=== PATIENT | male | born 1960 | race Caucasian/White ===

== ENCOUNTER → 2020-01-28 09:44 | Outpatient (CLI) | payer SELFPAY ==
--- NOTE | 2020-01-28 09:52 | RAD_ITS ---
STUDY: X-RAY - LEFT KNEE REASON FOR EXAM: Male, 60 years old. Left knee pain, injury 3 days ago TECHNIQUE: 4 view(s) of the knee. COMPARISON: None. FINDINGS: Normal visualized distal femur. Normal visualized proximal tibia and fibula. Normal proximal tibiofibular articulation. Normal medial femorotibial compartment. Normal lateral femorotibial compartment. Normal patellofemoral articulation. Tiny joint effusion. RAD/Knee 4 or More Views IMPRESSION: Tiny joint effusion. Electronically Signed: Scottie Ramey, at 15:05 EDT , Service support ,
== END ==
PROVIDERS: PCP Family Medicine; Referring Provider Family Medicine; Visit Provider Family Medicine
DX: S83.422A Sprain of lateral collateral ligament of left knee, initial encounter (principal)
CPT/HCPCS: 73564

== ENCOUNTER → 2020-08-18 15:22 | Outpatient (CLI) | payer SELFPAY ==
--- NOTE | 2020-08-18 15:32 | RAD_ITS ---
STUDY: X-RAY - LEFT ANKLE REASON FOR EXAM: Male, 60 years old. Left ankle pain x 3 months TECHNIQUE: 3 view(s) of the ankle. COMPARISON: None. FINDINGS: Normal visualized distal tibia and fibula. Normal medial and lateral malleoli. Normal tibiotalar articulation and ankle mortise. Talar neck beak. This is a normal variant. The visualized subtalar, talonavicular, calcaneocuboid and tarsal articulations are normal. The soft tissue structures are unremarkable. RAD/Ankle min 3 Views IMPRESSION: Normal x-ray examination of the ankle. Electronically Signed: Scottie Ramey, at 15:47 EST , Service support ,
== END ==
PROVIDERS: PCP Family Medicine
DX: M25.572 Pain in left ankle and joints of left foot (principal)
CPT/HCPCS: 73610

== ENCOUNTER → 2020-10-28 14:18 | Outpatient (CLI) | payer SELFPAY ==
--- NOTE | 2020-10-28 14:24 | RAD_ITS ---
STUDY: X-RAY - PELVIS AND RIGHT HIP REASON FOR EXAM: Male, 60 years old. chronic right hip pain TECHNIQUE: 3 views of the pelvis and hip. COMPARISON: None. FINDINGS: There is a non-specific bowel gas pattern. Normal visualized soft tissue structures. Normal bilateral iliac wings, sacroiliac joints and visualized sacrum. Normal bilateral superior and inferior pubic rami. Normal pubic symphysis. Normal bilateral ischial tuberosities. There are osteoarthritic changes of the femoral head with marginal osteophyte formation. There is osteoarthritic spur formation of the acetabular rim. is severe articular joint space narrowing of the hip. RAD/HIP, UNI W/ Pelvis 2-3 Views IMPRESSION: Severe degenerative change of the right hip Electronically Signed: Rickey Beltran DO at 5:04 EST Tel , Service support ,
== END ==
PROVIDERS: PCP Family Medicine
DX: M25.551 Pain in right hip (principal); G89.29 Other chronic pain
CPT/HCPCS: 73502

== ENCOUNTER → 2021-04-19 07:42 | Outpatient (CLI) | payer SELFPAY ==
[2021-03-29 07:58] VITALS: BMI 31.6
--- NOTE | 2021-04-19 07:49 | CT_ITS ---
STUDY: CT SCAN HIP RIGHT REASON FOR EXAM: Male, [address] templating for right GENA RADIATION DOSAGE (If Supplied By Facility): CTDIvol = ( 13.87 ) mGy, DLP = ( 959.01 ) mGycm. Individualized dose optimization techniques were used for this CT.? TECHNIQUE: Multiple axial tomographic images of both hip joints were obtained without intravenous contrast administration. Sagittal and coronal reconstruction was obtained as well. COMPARISON: Comparison is made with prior radiograph dated 10/28/2020. FINDINGS: There is a marked degree of joint space narrowing of the right hip joint. Subchondral geodes are seen in the femoral head. Small cystic changes are seen in the acetabulum. There is evidence of bony spur formation along the medial and lateral aspects of the right femoral head. There is also evidence of a dominant spur formation along the medial superior aspect of the right femoral head abutting the articular surface. Degenerative changes of the sacroiliac joints bilaterally. 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 Degenerative spurring of the femoral head as described. Electronically Signed: Scottie Ramey MD at 9:06 EDT , Service support ,
== END ==
PROVIDERS: PCP Family Medicine; Referring Provider Orthopaedic Surgery; Visit Provider Orthopaedic Surgery
DX: M16.11 Unilateral primary osteoarthritis, right hip (principal)
CPT/HCPCS: 73700

== ENCOUNTER → 2021-05-04 12:40 | Outpatient (CLI) | payer SELFPAY ==
[2021-03-29 07:58] VITALS: BMI 31.6
--- NOTE | 2021-05-04 16:03 | EKG12_ITS ---
Test Reason : PREOP Blood Pressure : / mmHG Vent. Rate : 068 BPM Atrial Rate : 068 BPM P-R Int : 176 ms QRS Dur : 086 ms QT Int : 388 ms P-R-T Axes : 006 -43 004 degrees QTc Int : 412 ms Normal sinus rhythm Left axis deviation Abnormal ECG Confirmed by ELIA EVANS, MEE ([id number]), online content editor PEDRO GODWIN ([id number]) on 05/05/2021 1:16:48 PM Referred By: Micheal Becerra Confirmed By:MEE RODRIGEZ MD
[2021-05-04 17:16] LABS: Absolute Lymphocyte Count 2.67 X10^3/uL (0.83-4.51); Absolute Neutrophil Count 3.5 X10^3/uL (2.0-7.7); Basophil# 0.04 X10^3/uL; Basophil% 0.6 % (0-1); Eosinophil# 0.13 X10^3/uL; Eosinophils% 1.9 % (0-5); Hematocrit 46.2 % (40-54); Hemoglobin 15.1 g/dL (13.0-16.5); Lymphocyte # 2.67 X10^3/ul (0.83-4.51); Lymphocyte % 38.6 % (19-41); Mean Corp Hgb Conc 32.7 g/dL (32-36); Mean Corpuscular Hgb 28.8 pg (27.0-32.0); Mean Platelet Vol. 9.5 fl (6.2-12.0); Monocyte# 0.59 X10^3/uL; Monocyte% 8.5 % (0-10); NRBC Flagged by Analyzer 0 % (0-5); Neutrophil # 3.46 X10^3/uL (2.7-7.7); Neutrophil % 50.1 % (47-70); Platelet Count 242 K/mm3 (150-450); RBC Distribution Width CV 13.4 % (11.6-14.6); RBC Distribution Width SD 43.4 fl (35.1-43.9); Red Blood Count 5.25 M/mm3 (4.6-6.2); White Blood Count 6.9 K/mm3 (4.4-11.0)
[2021-05-04 17:22] LABS: Partial Thromboplast Time 45.2 Seconds (24.1-36.2)
[2021-05-04 17:33] LABS: Anion Gap 6 (5-15); BUN 24 mg/dL (7-18); BUN/Creat Ratio 17.3 RATIO (10-20); Calcium,Total 8.9 mg/dL (8.5-10.1); Chloride 104 mmol/L (98-107); Creatinine, Serum 1.39 mg/dL (0.70-1.30); EST Glomerular Filtration Rate 55 mL/min (>60); Est Glom Filt Rate - Afr Amer 67 mL/min (>60); Glucose 99 mg/dL (74-106); Potassium 4.2 mmol/L (3.5-5.1); Sodium Level 139 mmol/L (136-145)
[2021-05-04 17:54] LABS: Magnesium 2.4 mg/dL (1.6-2.6)
[2021-05-06 16:26] LABS: Fructosamine 205 umol/L (0-285)
== END ==
PROVIDERS: Anesthesiology; PCP Family Medicine; Referring Provider Orthopaedic Surgery; Visit Provider Orthopaedic Surgery
DX: Z01.818 Encounter for other preprocedural examination (principal); Z53.8 Procedure and treatment not carried out for other reasons; Z01.812 Encounter for preprocedural laboratory examination; R94.31 Abnormal electrocardiogram [ECG] [EKG]
CPT/HCPCS: 36415; 80048; 82985; 83735; 85025; 85610; 85730; 86850; 86900; 86901; 87081; 93005

== ENCOUNTER 2021-06-22 08:10 | Day surgery (SDC) | payer SELFPAY ==
[2021-06-22] VITALS (7 sets, daily range): BP systolic 95–132; BP diastolic 64–94; PULSE 51–84; RESP 16–18; TEMP 36.1–36.6; O2SAT 93–100; BMI 31.4
[2021-06-22] MEDS: Lactated Ringers 1,000 ML 125 ML IV ×2 (07:00→11:30)
[2021-06-22 08:50] LABS: Bedside Glucose 99 mg/dL (70-110)
[2021-06-22] MEDS: Gabapentin 600 MG Tablet PO (09:02)
[2021-06-22] MEDS: Acetaminophen 500 MG Tablet 1000 MG PO ×2 (09:02→14:00)
[2021-06-22] MEDS: Scopolamine 1mg/72hr Patch 1 PATCH TD (09:03)
[2021-06-22] MEDS: Lactated Ringers 1,000 ML 100 ML IV (09:04)
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
--- NOTE | 2021-06-22 10:45 | FEM_PTH ---
PATIENT: ROSI BOWMAN LOC: [facility] U#:[id number] AGE/SX: 61/M ROOM: RE06/22/[address]: Dr. Micheal Becerra DO : 1960 BED: DIS: 06/22/2021 SPEC #: [id number] RECD: 06/22/21 14:57 STATUS: ZULEMA REDany #: [id number] SHELLI: 06/22/21 10:[address]: Micheal Becerra DEPT: SURGICAL PATHOLOGY RECD BY: Sophie Arias ENTERED: 06/23/21 11:42 SP TYPE: FEM HEAD OTHR DR: Dr. Ervin Jason MD Tissues: Femoral region, NOS Procedures: Decalcification bone/plaque Surgery Specimen Level IV HEADER OPERATION: Total hip replacement robotic arm assist PRE-OP DIAGNOSIS: Primary osteoarthritis right hip TISSUE SUBMITTED: Right hip bone and soft tissue MICROSCOPIC DIAGNOSIS Bone and tissue of right hip, total hip resection: Severe degenerative joint disease. Mild synovial hyperplasia. AM:janet 06/28/2021 MICROSCOPIC DESCRIPTION Slides are reviewed. GROSS DESCRIPTION Received is one container labeled with the patient's name and designated bone and soft tissue hip, right. The specimen consists of a cramer femoral head with portion of femoral neck. The femoral head measures 4.5 x 5 x 4 cm and the femoral neck measures 2 cm in length. The articular surface displays prominent osteophyte formation, eburnation and bone erosion. Also present in the specimen container are multiple irregular fragments of bone reamings and pink-yellow soft tissue measuring in aggregate 9 x 9 x 3 cm. Shop Tailor Apprentice sections are submitted in two cassettes as follows: 1 - soft tissue, 2 - bone after decalcification. / SJ:janet 06/23/21 TC:5 [facility]: [id number]
[2021-06-22] MEDS: Cefazolin 2 GM in 0.9% Normal Saline 100 ML IV (10:50)
[2021-06-22] MEDS: dexAMETHasone 10 MG/ML Vial IV (10:55)
--- NOTE | 2021-06-22 13:01 | PCM.OPRPT ---
Report of Operation Date of Procedure: 06/22/21 Description of Surgical Findings:: Preoperative diagnosis: Right hip DJD Postoperative diagnosis: Same Procedure: CT-guided Makoplasty assisted right total hip arthroplasty Implants: Hallwood Accolade II stem size 6, 132 degree neck angle +5 neck length 56 mm Trident II acetabular shell with [30] mm cancellous screw [36]mm [ceramic] head Anesthesia: [Spinal] EBL: [175] cc Complications: None Condition: Stable to PACU Indication for procedure: This is a 61-year-old male who has had long-standing arthrosis of the hip who has failed conservative treatment and wished to undergo total hip arthroplasty. We did discuss operative versus nonoperative intervention including risks of bleeding, infection , nerve artery tissue damage, need for further surgery, fracture, leg length discrepancy dislocation blood clot and need for postoperative physical therapy and postoperative expectations. An informed consent was signed. Procedure: Patient was met in the preoperative holding area once again the operative extremity was identified by both patient and physician and was marked. Patient was met by anesthesia . Anesthesia was started. patient was then positioned in the lateral decubitus position on a well-padded pegboard with an axillary roll. All bony prominences were checked and padded. The patient was prepped and draped in the usual sterile fashion. A timeout was called to ensure the proper patient procedure and extremity were being contemplated. Anatomic landmarks were palpated and marked for a standard posterior lateral approach. Prior to this the ASIS was palpated and 3 fingerbreadths proximal to this 3 pins were placed at a 45 degree angle into the iliac crest with good purchase, stab incisions were made with a 15 blade into the skin prior to placement. The Makoplasty array was then secured. A 10 blade scalpel was used to make a posterior incision through the skin and subcutaneous tissue. retractors were used and electrocautery was used to maintain meticulous hemostasis and dissect full-thickness flaps until the gluteal fascia was reached. The gluteal fascia was incised in line with the gluteal fibers. The bursal tissue was then freed from the underside and a Charnley retractor was placed. The femoral trochanteric checkpoint was placed and leg length was assessed using the trochanteric checkpoint and an EKG lead that was placed on the knee prior to prepping the leg .the fat pad was then elevated off of the external rotators with electrocautery and the external rotators were dissected off of the greater trochanter including the piriformis and were tagged with #1 Ethibond for later repair. The joint capsule opened with posterior trapdoor technique. The hip was surgically dislocated. The measurement on the preoperative CT from the top of the lesser trochanter to the femoral neck cut was marked Hohmann was placed around the lesser trochanter. A neck cutting guide was used to herrera the neck with a Bovie and an oscillating saw was used complete the femoral neck cut. The femoral head was then removed and sized. We then turned our attention to the acetabulum. A Bovie was used to make a perforation in the anterior joint capsule and a Ribera retractor was placed this was repeated in the 6 o'clock position and a wide anna was placed there. With a long handled knife the labral and pulvinar tissue were removed. We then registered the acetabulum with the pointing array and confirmed our landmarks. Once the socket was thoroughly prepared and labral tissue and pulvinar was removed we single reamed with the robotic arm. We then used the robotic arm to position the acetabular implant and impacted it into place under robotic guidance. [We then proceeded to place a posterior superior screw by drilling first measuring and inserting the screw]. We then inserted a trial liner. And turned our attention back to the femur at this point a femoral elevator was used. As well as a pointed wide Hohmann around the lesser trochanter and a Hohmann to help retract the gluteus medius. A box chisel was used to remove excess lateral neck followed by a canal finder and a lateralizing reamer. This was followed by sequential broaches. Attention was made of the version within the canal based on preoperative templating. Once the final broach was seated we then trialed reduced the hip it was determined that a 132 degree neck angle with a +5 neck length was the appropriate size. We then checked stability with shuck testing as well as flexion and internal rotation. then proceeded with hip extension and checked leg lengths at the knees and heels as well as with the trochanteric checkpoint and knee EKG lead. At this point trials were removed. A liner was inserted to the cup. The femoral stem was inserted. We re-trialed and then proceeded to impact the femoral head onto the Michael taper. We then surgically reduce the hip check stability again and leg lengths and were satisfied. Betadine rinse was allowed to sit for 5 minutes while everyone changed their gloves. Thorough irrigation was performed. Followed by closure of the external rotators with #2 FiberWire followed by closure of gluteal fascia with #1 Ethibond. 0 Vicryl fat stitches and 2-0 Vicryl subcutaneous stitches and bruna in the skin. A pulls were placed in the pin sites over the iliac crest with Xeroform 4 x 4 and OpSite. dressing was applied to incisional area with Mepilex Ag and an abduction pillow was placed. Patient tolerated the procedure well there was no intraoperative complications all counts were correct and the patient was brought back to the PACU in stable condition
--- NOTE | 2021-06-22 13:07 | DCINST_ITS ---
Discharge Instructions Diet Discharge Diet: - (High sugar diet increases risk of infection) Activity Weight Bearing Status: Weight bearing as tolerated Dressing / Incision Call your doctor if you observe: Shortness of breath and Chest pain Remove Dressing in: 3 days Additional Dressing/Incision Instructions:: Do not shower 72hrs. Begin daily showering warm water antibacterial soap postop day #3( 72hrs Post-operatively) and then daily. Leave the dressing on for 72 hours postoperatively then may remove prior to first shower and change dressing daily after this until no drain age for 2 consecutive days then may leave open to air. Follow hip precautions that were reviewed in hospital. Wear compression stockings, may remove at night. Start physical therapy as directed in hospital. Follow prescriptions instructions do not take any other pain medication or differ dosing without consulting your physician. Do not take oral NSAIDs until blood thinner has been completed , then may begin the day after completion if needed . Call Dr. Becerra's office with any concerns. Follow Up Care Please Follow Up With: Micheal Becerra DO When: 2 weeks Test Results: Test results from this visit will be discussed in further detail at your follow-up appointment, if applicable. Discharge Plan Admission Primary Reason for Your Visit: Right total hip arthroplasty Attending Provider: Micheal Becerra Primary Care Provider: Ervin Jason Discharge Orders/Prescriptions Prescriptions: New ondansetron HCl [Zofran] 4 MG tablet 4 mg PO Q6H PRN PRN (Reason: Nausea) 5 Days Qty: 5 RF: 0 acetaminophen [acetaminophen] 500 MG tablet 1,000 mg PO Q6H PRN Qty: 100 RF: 0 cephalexin [cephalexin] 500 MG capsule 1,000 mg PO Q8 Qty: 4 RF: 0 oxycodone 5 mg capsule 5 mg PO Q4H PRN (Reason: pain) 7 Days Qty: 60 RF: 0 Eliquis 2.5 MG tablet 2.5 mg PO BID Qty: 30 RF: 0 Continued multivitamin Capsule 1 cap PO DAILY RF: 0 Discontinued ibuprofen 600 mg tablet 600 mg PO Q8H PRN (Reason: Pain) RF: 0 Fish Oil Capsule 1,000 mg PO DAILY RF: 0 Other Ambulatory Orders: Type & Screen - PAT ONLY (Routine) Facility: [facility] - Location: Laboratory Ordered By: Dr. Will Carbajal Referrals / Follow Up: Ervin Jason MD [Primary Care Provider] - Disposition Disposition (needs filled in before D/C Order can be placed): Home, Self Care
--- NOTE | 2021-06-22 13:35 | RAD_ITS ---
STUDY: X-RAY - PELVIS AND RIGHT HIP REASON FOR EXAM: Postoperative evaluation of right hip arthroplasty. TECHNIQUE: 2 views of the pelvis and hip. COMPARISON: Radiographs 10/28/2020. FINDINGS: There is postoperative gas in the soft tissues and overlying skin bruna. Normal bilateral superior and inferior pubic rami. Normal pubic symphysis. Normal bilateral ischial tuberosities. There is a right hip arthroplasty without evidence of complication. RAD/Hip Min 2 Views (Portable) IMPRESSION: Uncomplicated right hip arthroplasty. Electronically Signed: Kevin Babb MD at 14:08 EDT Tel , Service support ,
[2021-06-22] MEDS: Cefazolin 1 GM/50 ML BAG IV (16:05)
== END 2021-06-22 17:15 ==
LOC: SDC 08:11 → AC 08:11
PROVIDERS: PCP Family Medicine; Referring Provider Orthopaedic Surgery; Visit Provider Orthopaedic Surgery
PROC: 8E0Y0CZ Robotic Assisted Procedure of Lower Extremity, Open Approach (ICD-10-PCS; CPT 27130; principal; 2021-06-22 10:15)
DX: M16.11 Unilateral primary osteoarthritis, right hip (principal); Z88.0 Allergy status to penicillin; Z88.2 Allergy status to sulfonamides
CPT/HCPCS: 01214; 27130; S2900; 73502; 82962; 86850; 86900; 86901; 87426; 88305; 88307; 88311; 97162; C1776; C9803; J7120; J2405

== ENCOUNTER 2021-07-06 11:30 | Outpatient (RCR) | payer SELFPAY ==
[2021-03-29 07:58] VITALS: BMI 31.6
--- NOTE | 2021-06-24 11:41 | HP.PTEVAL_ITS ---
Patient's Visit Information ROSI BOWMAN is a 61 year old M referred to Physical Therapy by Dr. Micheal Becerra DO with a diagnosis of Right GENA. Date of Evaluation: 06/24/21 Physical Therapist: Kennedy Choe - Visit Plan Frequency: 2x /Week Duration: 6 Weeks Plan: Follow THR protocol with posterior hip precautions. - Subjective Pt. is a 61 y.o. male who has been having right hip pain for at least a year with no specific injury that he is aware of. Pt. PLOF includes no history of right hip pain in the past before this. He had x-ray of his right hip which showed severe osteoarthritis. He had right THR with posterior approach on 06-22-21 and is currently ambulating with a rolling walker. Pt. was not using an assistive device prior to surgery. Pt. denies any falls. He denies any numbness or tingling down his right leg. Pt. has difficulty with walking, walking on uneven ground, ascending/descending stairs, squatting, sleeping, driving, getting into/out of bed, kneeling, LE dressing, bathing, standing long periods of time, housework, yard work, and work activity. Pt. is retired. His goal with physical therapy is to walk and play with his grandkids and no pain. Pt. has had previous physical therapy for his elbow and hand. Pt. denies any right hip pain currently, at worst 8/10 and describes the pain as achy, dull, and sharp. Pt. is taking Tylenol and Oxycodone for pain. Pt. PMH includes left elbow, finger surgery, and vasectomy. Pt. lives with his one story home with two steps to enter and handrail on left. Pt. hobbies include fishing, target shooting, and spending time with family/friends. - Objective Posture- Good posture in standing. Palpation- Vague tenderness over posterior right hip. Incision over posterior hip. PROM left hip- WNL for all motions. PROM right hip- NT due to recent surgery. Right knee AROM flexion 113 degrees and extension 0 degrees. Left knee AROM flexion 124 degrees and extension 0 degrees. Left LE strength hip flexion [5/5], abduction [5/5], adduction [5/5], extension [5/5], knee flexion [5/5], knee extension [5/5], ankle DF [5/5], PF [5/5]. Right LE strength hip flexion [2+/5], abduction [2+/5], adduction [2+/5], extension [2+/5], knee flexion [4+/5], knee extension [4+/5], ankle DF [4+/5], PF [4+/5]. Sensation- WNL bilateral LE. Special tests- NA. Gait- Pt. ambulates with rolling walker and step to gait pattern. Stairs- Pt. ascends /descends with step to gait pattern and unilateral handrail. - Balance/Special Test Scores Lower Extremity Functional Score: 5 WOMAC Total Score: 58 WOMAC Percentatge: 36.9600 - Goals Goal 1:: Pt. will improve right LE strength to 4/5 for all motions in order to improve stability and balance. Goal Time Frame: 6-8 Weeks Goal 2:: Pt. will be able to ambulate with SPC and no gait deviations. Goal Time Frame: 2-4 Weeks Goal 3:: Pt. will be able to ambulate with no assistive device or gait deviations. Goal Time Frame: 6-8 Weeks Goal 4:: Pt. will be able to ascend/descend a flight of stairs with alternating step pattern and unilateral handrail. Goal Time Frame: 6-8 Weeks Goal 5:: Pt. will be able to stand/walk for at least 20 minutes with right hip pain < 3/10. Goal Time Frame: 6-8 Weeks Goal 6:: Pt. will be able to complete ADL's with right hip pain < 3/10. Goal Time Frame: 6-8 Weeks - Rehabilitation Potential Physical Therapy Diagnosis: Decreased right hip ROM, LE strength, balance, and pain Rehabilitation Potential: Good - Anticipated Interventions Patient/Client Instruction: Educate patient on: Condition, Plan of Care For the Purpose of:: To decrease pain, To decrease swelling/inflammation, To increase ROM, To improve ability to perform ADL's, To improve performance and independence with ADL's, To decrease soft tissue restriction, To increase flexibility/ROM, To assume or resume ADL's, To improve safety, To improve tolerance to ADL's Therapeutic Exercise to Include: Strength training, Endurance training, Balance training, Body mechanics, Gait and locomotor training, Active ROM Comment: Focus on improving LE strength and balance. For the Purpose of:: To decrease pain, To decrease swelling/inflammation, To increase ROM, To improve ability to perform ADL's, To improve performance and independence with ADL's, To increase flexibility/ROM, To improve endurance, To improve balance, To assume or resume ADL's, To improve tolerance to ADL's Functional Training to Include: ADL Training, Functional home training, Gait training For the Purpose of:: To decrease pain, To decrease swelling/inflammation, To increase ROM, To improve ability to perform ADL's, To improve performance and independence with ADL's, To increase flexibility/ROM, To improve endurance, To improve balance, To improve safety with gait, To assume or resume ADL's, To improve safety, To improve tolerance to ADL's Assistive Devices: Cane, Wheeled walker For the Purpose of:: To decrease pain, To decrease swelling/inflammation, To increase ROM, To improve ability to perform ADL's, To improve performance and independence with ADL's, To increase flexibility/ROM, To improve endurance, To improve balance, To assume or resume ADL's, To improve tolerance to ADL's Cryotherapy (ice pack, ice massage): Yes For the Purpose of:: To decrease pain, To decrease swelling/inflammation, To improve performance and independence with ADL's, To improve tolerance to ADL's Thank you for the opportunity to evaluate your patient. For Medicare and Medicare HMO plans, please review the plan of care and approve it. It will need to be FAXED BACK to us at [phone] for Medicare purposes. For Medicare only, by signing this I certify the plan of care. Please let me know if there are questions or concerns regarding this plan of care. Physician Signature: Date:
== END 2021-07-06 19:00 | disposition home or self-care (01) ==
LOC: PT 11:30
PROVIDERS: PCP Family Medicine; Referring Provider Orthopaedic Surgery; Visit Provider Orthopaedic Surgery
DX: Z47.1 Aftercare following joint replacement surgery (principal); Z96.641 Presence of right artificial hip joint
CPT/HCPCS: 97110; 97161

== ENCOUNTER 2021-09-13 07:50 | Emergency (ER) | payer SELFPAY ==
[2021-09-13 07:51] VITALS: BP 130/84; PULSE 84; RESP 16; TEMP 35.8; O2SAT 95; BMI 30.8
--- NOTE | 2021-09-13 08:07 | CT_ITS ---
STUDY: CT ABDOMEN AND PELVIS WITH CONTRAST REASON FOR EXAM: Male, 61 years old. 2 day history of right lower quadrant pain. RADIATION DOSAGE (If Supplied By Facility): CTDIvol = ( 20.64 ) mGy, DLP = ( 1482.33 ) mGycm TECHNIQUE: Transaxial images were obtained from the dome of the diaphragm to the symphysis pubis without oral contrast. IV 100mL Isovue-370 was administered. Sagittal and coronal images were reconstructed. Individualized dose optimization techniques were used for this CT. COMPARISON: None. FINDINGS: Focal patchy left lower lobe infiltrates. The visualized portions of the heart are within normal limits. Normal liver. Normal gallbladder and extrahepatic biliary system. Normal spleen. Normal pancreas. Normal bilateral adrenal glands. Normal right kidney. Normal left kidney. Normal visualized stomach. Normal small intestine. Normal colon. The appendix is visualized and appears normal. Normal abdominal aorta. Normal inferior vena cava. Normal retroperitoneum. Normal urinary bladder. There is enlargement of the prostate gland. It measures 4.8 cm x 3.8 cm. This causes indentation at the bladder base. Normal abdominal wall. There are mild degenerative changes of the visualized lumbar spine. The patient is status post right hip replacement. CT/Abdomen/Pelvis W IV Cont ONLY IMPRESSION: Patchy left lower lobe infiltrates. Electronically Signed: Scottie Ramey MD at 9:19 EST , Service support ,
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
[2021-09-13 08:23] LABS: Absolute Lymphocyte Count 1.69 X10^3/uL (0.83-4.51); Absolute Neutrophil Count 3.4 X10^3/uL (2.0-7.7); Basophil# 0.03 X10^3/uL; Basophil% 0.5 % (0-1); Eosinophil# 0.05 X10^3/uL; Eosinophils% 0.9 % (0-5); Hematocrit 45.2 % (40-54); Hemoglobin 14.6 g/dL (13.0-16.5); Lymphocyte # 1.69 X10^3/ul (0.83-4.51); Lymphocyte % 29.2 % (19-41); Mean Corp Hgb Conc 32.3 g/dL (32-36); Mean Corpuscular Hgb 27.8 pg (27.0-32.0); Mean Corpuscular Volume 85.9 fL (80-94); Monocyte# 0.53 X10^3/uL; Monocyte% 9.2 % (0-10); NRBC Flagged by Analyzer 0 % (0-5); Neutrophil # 3.44 X10^3/uL (2.7-7.7); Neutrophil % 59.5 % (47-70); Platelet Count 189 K/mm3 (150-450); RBC Distribution Width CV 13.3 % (11.6-14.6); RBC Distribution Width SD 41.9 fl (35.1-43.9); Red Blood Count 5.26 M/mm3 (4.6-6.2); White Blood Count 5.8 K/mm3 (4.4-11.0)
[2021-09-13 08:31] LABS: Bacteria 0 SEEN /hpf (None Seen); Mucous, Urine 0 SEEN /hpf (<or=2+); Squamous Epithelial Cells - UA 0 SEEN /hpf (0-5); White Blood Cells 0 SEEN /hpf (0-5)
[2021-09-13 08:36] LABS: Color, Urine Yellow (Yellow); Glucose, Dipstick Normal (Normal); Ketone-Dipstick Negative (Negative); Leukocyte Esterase-Dipstick Negative /ul (Negative); Nitrite-Dipstick Negative (Negative); Occult Blood-Urine 25 /ul (Negative); Protein-Dipstick 15 mg/dl (Negative); Urine Bilirubin Dipstick Negative (Negative); Urine Clarity Clear (Clear); Urine Urobilinogen Normal (Normal)
[2021-09-13 08:38] LABS: ALB/GLOB Ratio 0.7 RATIO (0.9-2.4); AST(SGOT) 32 U/L (15-37); Alanine Aminotransfer ALT/SGPT 46 U/L (16-61); Alkaline Phosphatase 63 U/L (45-117); Anion Gap 6 (5-15); BUN 17 mg/dL (7-18); Calcium,Total 9.2 mg/dL (8.5-10.1); Chloride 108 mmol/L (98-107); Creatinine, Serum 1.13 mg/dL (0.70-1.30); EST Glomerular Filtration Rate 70 mL/min (>60); Est Glom Filt Rate - Afr Amer 84 mL/min (>60); Globulin 4.4 g/dL (2.2-4.2); Glucose 101 mg/dL (74-106); Potassium 4.2 mmol/L (3.5-5.1); Protein, Total 7.4 g/dL (6.4-8.2); Sodium Level 139 mmol/L (136-145)
[2021-09-13 08:42] LABS: Red Blood Cells-Urine 0-5 SEEN /hpf (0-5)
[2021-09-13 09:41] VITALS: BP 126/78; PULSE 72; RESP 16; O2SAT 97
== END 2021-09-13 09:41 | disposition home or self-care (01) ==
PROVIDERS: Emergency Provider Student in an Organized Health Care Education/Training Program; PCP Family Medicine
DX: R10.31 Right lower quadrant pain (principal)
CPT/HCPCS: 74177; 80053; 81001; 85025; 99283; Q9967; A4216

== ENCOUNTER → 2022-11-01 | Outpatient (CLI) | payer OTHER, SELFPAY ==
[2022-11-01 10:10] LABS: Absolute Lymphocyte Count 1.77 X10^3/uL (0.83-4.51); Absolute Neutrophil Count 2.5 X10^3/uL (2.0-7.7); Basophil# 0.06 X10^3/uL; Basophil% 1.2 % (0-1); Hematocrit 49.8 % (40-54); Hemoglobin 15.7 g/dL (13.0-16.5); Lymphocyte # 1.77 X10^3/ul (0.83-4.51); Lymphocyte % 36.1 % (19-41); Mean Corp Hgb Conc 31.5 g/dL (32-36); Mean Corpuscular Hgb 28.1 pg (27.0-32.0); Mean Corpuscular Volume 89.2 fL (80-94); Mean Platelet Vol. 9.6 fl (6.2-12.0); Monocyte% 10.2 % (0-10); NRBC Flagged by Analyzer 0 % (0-5); Neutrophil # 2.46 X10^3/uL (2.7-7.7); Neutrophil % 50.3 % (47-70); Platelet Count 229 K/mm3 (150-450); RBC Distribution Width CV 13.3 % (11.6-14.6); RBC Distribution Width SD 43.5 fl (35.1-43.9); Red Blood Count 5.58 M/mm3 (4.6-6.2); White Blood Count 4.9 K/mm3 (4.4-11.0)
[2022-11-01 10:27] LABS: Hemoglobin A1c 5.8 % (3.8-5.6)
[2022-11-01 10:38] LABS: Vitamin B12 568 pg/mL (211-911)
[2022-11-01 10:42] LABS: AST(SGOT) 27 U/L (15-37); Alanine Aminotransfer ALT/SGPT 32 U/L (16-61); Albumin, Serum 3.8 g/dL (3.2-5.0); Alkaline Phosphatase 42 U/L (45-117); Anion Gap 6 (5-15); BUN 21 mg/dL (7-18); BUN/Creat Ratio 16.5 RATIO (10-20); Calcium,Total 9.3 mg/dL (8.5-10.1); Chloride 107 mmol/L (98-107); Cholesterol 197 mg/dL (200); Creatinine, Serum 1.27 mg/dL (0.70-1.30); EST Glomerular Filtration Rate 61 mL/min (>60); Est Glom Filt Rate - Afr Amer 74 mL/min (>60); Globulin 3.8 g/dL (2.2-4.2); Glucose 87 mg/dL (74-106); High Density Lipoprotein 43 mg/dL; PSA,Total - Annual Screen 3.08 ng/mL (0.00-4.00); Potassium 4.2 mmol/L (3.5-5.1); Protein, Total 7.6 g/dL (6.4-8.2); Sodium Level 140 mmol/L (136-145); Thyroid Stim Hormone (TSH) 1.29 uIU/mL (0.358-3.74); Triglycerides 72 mg/dL; Very Low Density Lipoprotein 14 mg/dL (5-40)
== END | disposition home or self-care (01) ==
LOC: MFPLAB 08:45
PROVIDERS: PCP Family Medicine; Referring Provider Family Medicine; Visit Provider Family Medicine
DX: Z00.00 Encounter for general adult medical examination without abnormal findings (principal); Z13.0 Encounter for screening for diseases of the blood and blood-forming organs and certain disorders involving the immune mechanism; V78.9XXA Unspecified occupant of bus injured in noncollision transport accident in traffic accident, initial encounter; Z13.1 Encounter for screening for diabetes mellitus; Z13.220 Encounter for screening for lipoid disorders; Z12.5 Encounter for screening for malignant neoplasm of prostate; Z13.228 Encounter for screening for other metabolic disorders; G62.9 Polyneuropathy, unspecified
CPT/HCPCS: 36415; 80053; 80061; 82607; 83036; 84153; 84443; 85025; G0103